=== PATIENT | male | born 1950 | race Hispanic/Latino ===

== ENCOUNTER → 2020-07-19 | Outpatient (CLI) | payer OTHER ==
[~2020-07-19] MED LIST: ACET1TAB12 PO; CELE100C PO; GABA-531 PO; OMEP20CA12 PO; TRAM50TA4 PO
== END | disposition home or self-care (01) ==
LOC: RAH 13:31
PROVIDERS: ATTEND Surgery
DX: Z09 Encounter for follow-up examination after completed treatment for conditions other than malignant neoplasm (principal)
CPT/HCPCS: 93971